=== PATIENT | female | born 1975 | race Caucasian/White ===

== ENCOUNTER → 2016-04-29 | Outpatient (CLI) | payer OTHER | LOC: BMCIMAGING 15:29 | PROVIDERS: ATTEND Emergency Medicine | DX: N83.202 Unspecified ovarian cyst, left side (principal); R18.8 Other ascites ==

== ENCOUNTER → 2016-06-10 | Outpatient (CLI) | payer OTHER | LOC: CIMAGING 15:17 | PROVIDERS: ATTEND Midwife | DX: Z03.89 Encounter for observation for other suspected diseases and conditions ruled out (principal) | CPT/HCPCS: 76856-PO ==

== ENCOUNTER → 2016-06-19 | Outpatient (CLI) | payer OTHER | LOC: CIMAGING 07:32 | PROVIDERS: ATTEND Nurse Practitioner Adult Health | DX: R10.11 Right upper quadrant pain (principal); R94.5 Abnormal results of liver function studies; R11.2 Nausea with vomiting, unspecified | CPT/HCPCS: 76700-PO ==

== ENCOUNTER 2016-10-08 11:19 | Day surgery (SDC) | payer OTHER ==
[~2016-10-08 11:19] MED LIST: DOXYCYCLINE HYCLATE 100 MG CAP/TAB PO SCH
--- NOTE | 2016-10-08 11:51 | GHP ---
[f rep st] PREOP HISTORY AND PHYSICAL DATE OF SURGERY: 10/08/2016 PLANNED PROCEDURE: Suction dilation and curettage for a missed . INDICATIONS: The patient is a 41-year-old 3, para 2-0-0-2, who was seen for a new OB visit on 10/02/2016. Patient had last menstrual period of 10/2016. She had been having regular cycles and had been trying to conceive. She presented for her new OB visit at 8 weeks' gestation and was diagnosed with a missed . There was a gestational sac at the fundus with no pole and no yolk sac seen. Condolences were given. Patient was given options of expectant management versus medical management versus suction dilation and curettage. The patient requested that she wanted to have a suction dilation and curettage. Risks and benefits have been reviewed with the patient and patient will sign consent in the preop area. MEDICAL HISTORY: Significant for celiac disease, left carotid cave aneurysm, history of asthma, history of migraines, history of pyelonephritis x1. MEDICATIONS: vitamins with DHA, folic acid and calcium. SURGICAL HISTORY: section x2 done because of her brain aneurysm and recommendation to not have patient push, right shoulder surgery, 2 knee surgeries, breast augmentation. ALLERGIES: Neosporin which causes blisters. SOCIAL HISTORY: The patient is . She is a teacher. She denies tobacco , alcohol, or drug use. FAMILY MEDICAL HISTORY: Noncontributory. LINEN CHECKER HISTORY: Menarche age 16. Periods every 28 days, lasting 3-4 days. She is a 3, para 2-0-0-2. In 2006, she had a primary low transverse section at 39 weeks of a 7 pound 13 ounce male infant. She had a C- section due to not being able to push because of her aneurysm. In 2007, she had a repeat at 39 weeks of a 7 pound 13 ounce male. Current is a missed , blighted ovum. Patient denies any history of any abnormal Pap smears or sexually transmitted diseases. REVIEW OF SYSTEMS: 10-point review of systems is negative with the exception of the patient having been bleeding for the last several days. Otherwise, 10- point review of systems is negative. PHYSICAL EXAM: VITAL SIGNS: Stable. GENERAL APPEARANCE: Alert and oriented x3. PSYCH: She has appropriate affect. NECK: Mobile and supple and no masses are noted. HEART: Rate is regular regular. LUNGS: Clear to auscultation bilaterally. ABDOMEN: Soft, nondistended, nontender. No organomegaly is noted. EXTREMITIES: Revealed no calf tenderness or edema. PELVIC: Reveals a mobile mid position uterus with no adnexal masses. IMAGING: Pelvic ultrasound shows a gestational sac measuring 2 x 1 cm with no pole or yolk sac. Diagnosis of missed was made. Rh status is pending. ASSESSMENT AND PLAN: A 41-year-old, 3, para 2-0-0-2, who is diagnosed with a missed . She will undergo a suction dilation and curettage. Risks and benefits of the procedure have been extensively reviewed with the patient including risks of bleeding, infection, damage to the bowel, bladder, or major blood vessels, risk of scarring in the uterus which might affect future fertility, as well as the risk of leaving a small piece of tissue inside necessitating a repeat surgery. The patient will sign consent of surgery. Of note, the patient's prior auth has been submitted to insurance but has not been approved yet. I discussed this extensively with the patient, that I cannot guarantee that the procedure will be covered, however, because it is an indicated procedure it would likely be covered. The patient and her plan on talking with her insurance company and will give her final answer before proceeding with the surgery, if they want to proceed now or await confirmation of insurance. /[id number]/MODL MTDD
[2016-10-08] MEDS ORDERED: DOXYCYCLINE HYCLATE 100 MG CAP/TAB PO ONE ×2 (12:00→13:00)
[2016-10-08] MEDS ORDERED: MIDAZOLAM 2 MG/2 ML VIAL IVP ONE (12:21)
--- NOTE | 2016-10-08 12:23 | PDANEPAE ---
ANE Past Medical History - Cardiovascular History Hx Hypertension: No Hx Arrhythmias: No Hx Chest Pain: No Hx Coronary Artery / Peripheral Vascular Disease: Yes Hx CHF / Valvular Disease: No Hx Palpitations: No Cardiovascular History Comment: carotid artery aneurysm - Pulmonary History Hx Oxygen in Use at Home: No - Endocrine History Hx Diabetes: No ANE Patient History - Allergies Allergies/Adverse Reactions: bacitracin [From Neosporin ([id number])] Allergy (Verified 04/09/14 13:07) bacitracin zinc [From Neosporin ([id number])] Allergy (Verified 04/09/14 13: 07) neomycin sulfate [From Neosporin ([id number]-pos-[id number])] Allergy (Verified 04/09/14 13: 07) Penicillins Allergy (Verified 04/09/14 13:07) polymyxin B [From Neosporin ([id number])] Allergy (Verified 04/09/14 13:07) - Home Medications Home Medications: Alprazolam 08/16/13 [Last Taken Unknown] - Smoking Hx Smoking Status: Never smoked ANE Physical Exam - Airway Neck exam: FROM - Pulmonary Pulmonary: no respiratory distress - Cardiovascular Cardiovascular: regular rate and rhythym - ASA Status ASA Status: I ANE Anesthesia Plan Anesthesia Plan: GA with mask, MAC
[2016-10-08] MEDS ORDERED: PROPOFOL/EMULSION 500 MG/50 ML BOTTLE IV ONE (12:51)
[2016-10-08] MEDS ORDERED: PROPOFOL 200 MG/20 ML VIAL ONE (13:22)
[2016-10-08] MEDS ORDERED: ONDANSETRON 4 MG/2 ML VIAL IVP PRN (13:48)
[2016-10-08] MEDS ORDERED: NALOXONE HCL 0.4 MG/ML INJ IVP PRN (13:48)
--- NOTE | 2016-10-08 13:50 | POSTANESTH ---
Post Anesthetic Evaluation Cardiovascular Status: Normal, Stable Respiratory Status: Normal, Stable Level of Consciousness/Mental Status: Can Participate in Eval Pain Control: Adequate, Prn Tx Ordered Nausea/Vomiting Control: Adequate, Prn Tx Ordered Complications Possibly Related to Anesthesia: None Noted
[2016-10-08] MEDS: fentaNYL 100 MCG/2 ML INJ IVP PRN ×2 (14:24→14:35)
[2016-10-08] MEDS ORDERED: KETOROLAC 30 MG/1 ML SDV ONE (16:59)
[2016-10-08] MEDS ORDERED: KETOROLAC 30 MG/1 ML SDV IVP ONE (17:00)
--- NOTE | 2016-10-12 11:38 | GOP ---
[f rep st] OPERATIVE REPORT DATE OF OPERATION: SURGEON: Katalina Allred DO ANESTHESIA: General. PREOPERATIVE DIAGNOSIS: Missed . POSTOPERATIVE DIAGNOSIS: Missed . PROCEDURE PERFORMED: Suction dilation and curettage. FINDINGS: Mobile and mid-position uterus, which was slightly enlarged. No adnexal masses. SPECIMENS: Moderate amount of retained products of conception. ESTIMATED BLOOD LOSS: 20 cc. INDICATIONS: Patient is a 41-year-old, 3, para 2, 0-0-2, who is supposed to be 8 weeks on 0 10/02/2016 when she presented for her new OB visit. A transvaginal ultrasound showed a gestational s ac at the fundus without pole or yolk sac. Diagnosis of missed was made. The patien t began having bleeding and spotting so she presented on 10/08, for a followup ultrasound to see if she had passed any products of conception and she had not. The patient elected to proceed with a suc tion dilation and curettage at that time. Risks and benefits were reviewed with the patient. The p atient has been properly consented. DESCRIPTION OF PROCEDURE: Patient was taken to the operating room with intravenous fluids in place. She was then placed on the operating room table in the dorsal supine position where anesthesia was obtained. She had been given doxycycline preoperatively p.o. She was then prepped and draped in t he normal sterile fashion. Exam under anesthesia revealed a mobile mid position uterus with no adne xal masses. A speculum was then placed in the patient's vagina. An Allis clamp was used to grasp t he anterior lip of the cervix. The cervix was then carefully dilated to allow for the introduction of an 8 curved suction curette. A large amount of products of conception were collected. A sharp m etal curette was then introduced, and a circumferential curettage was gently performed until a gritt y texture was noted. Dissection curette was then reintroduced one additional time. No additional p roducts of conception were noted. Transvaginal ultrasound was performed. After instruments were th en removed from the patient's vagina and a thin endometrial stripe was noted. Patient was then retu rned to the dorsal supine position where she was easily awoken from anesthesia. Sponge count was co rrect. The patient was transported to the recovery room in stable condition. /[id number]/MODL
== END 2016-10-08 18:10 | disposition home or self-care (01) ==
LOC: FOBOP 11:19
PROVIDERS: ATTEND Obstetrics & Gynecology
PROC: 10D17ZZ Extraction of Products of Conception, Retained, Via Natural or Artificial Opening (ICD-10-PCS; principal; 2016-10-08)
DX: O02.1 Missed abortion (principal); J45.909 Unspecified asthma, uncomplicated; I72.0 Aneurysm of carotid artery; Z88.0 Allergy status to penicillin; Z88.1 Allergy status to other antibiotic agents
CPT/HCPCS: J1885; J2250; J2405; J2704; J3010

== ENCOUNTER → 2017-05-29 | Outpatient (CLI) | payer OTHER | LOC: FIMAGING 14:16 | PROVIDERS: ATTEND Obstetrics & Gynecology | DX: O09.521 Supervision of elderly multigravida, first trimester (principal); O09.811 Supervision of pregnancy resulting from assisted reproductive technology, first trimester; O99.411 Diseases of the circulatory system complicating pregnancy, first trimester; O34.219 Maternal care for unspecified type scar from previous cesarean delivery; Z3A.12 12 weeks gestation of pregnancy ==

== ENCOUNTER → 2017-07-21 | Outpatient (CLI) | payer OTHER | LOC: FIMAGING 11:41 | PROVIDERS: ATTEND Obstetrics & Gynecology | DX: O09.522 Supervision of elderly multigravida, second trimester (principal); O09.812 Supervision of pregnancy resulting from assisted reproductive technology, second trimester; I72.0 Aneurysm of carotid artery; Z3A.20 20 weeks gestation of pregnancy; Z98.891 History of uterine scar from previous surgery ==